=== PATIENT | male | born 1975 | race African-American/Black ===

== ENCOUNTER 2021-09-27 17:35 | Emergency (ER) | payer SELFPAY ==
[~2021-09-27] VITALS: Ht 177.8 cm; Wt 100.0 kg
[2021-09-27] MEDS ORDERED: ACETAMINOPHEN 325MG TABLET PO STA (17:59)
[2021-09-27] MEDS ORDERED: LORAZEPAM 0.5MG TABLET PO ONE (18:00)
[2021-09-27 18:45] LABS: BASOPHILS % 0.5 % (0.0-2.0); EOSINOPHILS % 2.2 % (0.0-5.0); HEMATOCRIT. 41.4 % (42.0-52.0); HEMOGLOBIN. 13.6 g/dL (14.0-18.0); LYMPHOCYTES % 43.5 % (20.0-50.0); MEAN CORPUSCULAR VOLUME 88.5 fL (80.0-94.0); MEAN PLATELET VOLUME 9.3 fl (7.4-10.4); MONOCYTES % 7.5 % (2.0-8.0); NEUTROPHILS % 46.3 % (40.0-76.0); PLATELET 216 x1000/uL (130-400); RED BLOOD CELL COUNT 4.68 mill/uL (4.7-6.1); RED CELL DISTRIBUTION WIDTH 13.5 % (11.6-14.6)
[2021-09-27 18:52] LABS: CHLORIDE 111 mEq/L (98-107)
[2021-09-27] MEDS ORDERED: IBUP-2028 MT (20:00)
[2021-09-27] MEDS ORDERED: CYCL25PO15 MT (20:00)
[2021-09-27 21:23] VITALS: BP 144/84
== END 2021-09-27 19:38 | disposition home or self-care (01) ==
LOC: ER 17:35
DX: R07.89 Other chest pain (principal); I10 Essential (primary) hypertension; Z88.2 Allergy status to sulfonamides
CPT/HCPCS: 36415; 71045; 80053; 83880; 84484; 85025; 93005; 99285